=== PATIENT | female | born 1965 | race Caucasian/White ===

== ENCOUNTER 2020-12-29 11:23 | Emergency (ER) | payer OTHER, SELFPAY ==
[2020-12-29 11:36] VITALS: BP 142/84; PULSE 68; RESP 16; TEMP 36.8; O2SAT 98; BMI 24.6
--- NOTE | 2020-12-29 12:18 | ED_ITS ---
HPI - Wound/Laceration General Chief Complaint: Wound/Laceration Stated Complaint: arm lac at work Time Seen by Provider: 12/29/20 12:05 Source: patient Mode of arrival: ambulatory Limitations: no limitations History of Present Illness HPI narrative: 55 y/o female presenting to the ER for evaluation of a left forearm laceration. 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 It sliced her upper forearm but she reports it is not deep. She controlled the bleeding with a dressing. She does not know when her last tetanus shot was. She has no numbness, tingling. Full ROM of wrist, fingers and elbow. Onset (ago): minute(s) Extremity Location: left: forearm Place: work Patient tetanus UTD: No Context: accidental Associated symptoms: none Treatments prior to arrival: bandage Related Data Allergies Allergy/AdvReac Type Severity Reaction Status Date / Time epoxy resin Allergy Hives Verified 12/29/20 11:40 latex Allergy Hives Verified 12/29/20 11:40 Review of Systems Constitutional: Constitutional: Denies chills, Denies fever(s) and Denies headache(s) ENT: Denies headache(s) Cardiovascular: Cardiovascular: Denies chest pain Gastrointestinal: Gastrointestinal: Denies nausea and Denies vomiting Musculoskeletal: Musculoskeletal: Denies deformity, Denies arthralgias, Denies joint swelling, Denies limited range of motion and Denies tingling Integumentary/Breasts: Skin/Breast: Denies swelling and Reports wounds Neurologic: Denies headache(s) and Denies tingling Hematologic/Lymphatic: Hematologic/Lymphatic: Denies easy bleeding and Denies easy bruising PMFSH Social History Social History Advance Directives: No Advance Directives Information Provided: No Physical Exam Vital Signs: Vital Signs: Last Vital Signs Temp 98.2 F 12/29/20 11:36 Pulse 68 12/29/20 11:36 Resp 16 12/29/20 11:36 BP 142/84 H 12/29/20 11:36 Pulse Ox 98 12/29/20 11:36 Body Mass Index 24.6 Appearance: Alert. Oriented X3. No acute distress. HEENT: normal inspection CVS: Normal heart rate and rhythm. Pulses normal. Respiratory: No respiratory distress. Skin: Skin warm and dry. Normal skin color. Normal skin turgor. No rashes. Extremities: left dorsal forearm with proximal 5cm superficial skin tear about 1 cm wide. small amount of oozing and some skin missing, unable to approximate edges. No surrounding eccymosis, ertythema. Normal ROM of wrist, elbow. Equal bridge crew member strength. Neuro: Oriented X 3. No motor deficit. No sensory deficit. Course Course Course Narrative: 55 y/o female presenting with left forearm superficial skin tear from fan blade. Wound was irrigated and cleaned. Unable to approximate skin edges due to missing skin, very superficial. Wound care with bacitracin, nonstick pad and gauze wrap applied. Wound care discussed. tdap given. Stable for d/c home. Discharge Plan Discharge Clinical Impression: Skin tear Patient Disposition: Home, Self-Care Instructions: Skin Tear (ED) Additional Instructions: Use bacitracin to the wound 2 times per day. Keep clean and covered. You may wash briefly with soap and water then pat dry. If you develop signs or symptoms of infection such as increased pain, swelling, redness, warmth or drainage of pus come back to the ER for evaluation. Interventions: ED Discharge Assessment Last Done: 12/29/20 12:56 Discharge Date/Time: 12/29/20 12:57
[2020-12-29] MEDS: Diphth,Pertus(ACell),Tet Adult 0.5 ML SYRINGE IM (12:52)
== END 2020-12-29 12:57 | disposition home or self-care (01) ==
PROVIDERS: Emergency Provider Emergency Medicine; PCP Internal Medicine
DX: S50.912A Unspecified superficial injury of left forearm, initial encounter (principal); W31.82XA Contact with other commercial machinery, initial encounter; Y93.E9 Activity, other interior property and clothing maintenance; Y92.9 Unspecified place or not applicable; Y99.0 Civilian activity done for income or pay
CPT/HCPCS: 90471; 90715; 99283; 99284